=== PATIENT | male | born 1970 | race Caucasian/White ===

== ENCOUNTER 2023-01-03 16:59 | Emergency (ER) | payer MEDICAID ==
[2023-01-03 17:45] LABS: BASOPHILS % (AUTO) 0.5 %; EOSINOPHILS # (AUTO) 0.2 10^3/uL (0.0-0.7); EOSINOPHILS % (AUTO) 2.8 %; HCT - HEMATOCRIT 43.9 % (42.0-52.0); HGB - HEMOGLOBIN 15.3 g/dL (14.0-18.0); LYMPHOCYTES # (AUTO) 1.5 10^3/uL (1.5-3.5); LYMPHOCYTES % (AUTO) 23.4 %; MEAN CORPUSCULAR HGB CONC 34.9 g/dL (32.0-36.0); MEAN CORPUSCULAR VOLUME 94.8 fL (80.0-94.0); MEAN PLATELET VOLUME 10.2 fL (7.4-11.4); MONOCYTES # (AUTO) 0.5 10^3/uL (0.0-1.0); MONOCYTES % (AUTO) 7.1 %; NEUTROPHILS # (AUTO) 4.2 10^3/uL (1.5-6.6); NEUTROPHILS % (AUTO) 65.9 %; PLT - PLATELET COUNT 186 10^3/uL (130-450); RED BLOOD COUNT 4.63 10^6/uL (4.70-6.10); RED CELL DISTRIBUTION WIDTH 12.7 % (12.0-15.0); WHITE BLOOD COUNT 6.3 x10^3/uL (4.8-10.8)
[2023-01-03 18:01] LABS: ALBUMIN 4.8 g/dL (3.2-5.5); BILIRUBIN,TOTAL 0.4 mg/dL (0.2-1.0); CALCIUM 9.4 mg/dL (8.5-10.3); CREATININE 0.8 mg/dL (0.6-1.3); TOTAL PROTEIN 7.2 g/dL (6.4-8.9)
[2023-01-03 18:04] LABS: TROPONIN I HIGH SENSITIVITY 2.3 ng/L (2.3-19.7)
--- NOTE | 2023-01-03 18:34 | XRAY Report ---
PROCEDURE: Chest 1 View X-Ray INDICATIONS: Chest pain TECHNIQUE: One view of the chest was acquired. COMPARISON: None. FINDINGS: Surgical changes and devices: None. Lungs and pleura: No pleural effusions or pneumothorax. Lungs are clear. Mediastinum: Mediastinal contours appear normal. Heart size is normal. Bones and chest wall: No suspicious bony lesions. Overlying soft tissues appear unremarkable. IMPRESSION: No significant portable chest abnormality is seen. Reviewed by: Almas Barboza MD on 01/03/2023 5:33 PM [facility] Approved by: Almas Barboza MD on 01/03/2023 5:33 PM [facility] Station ID: [id number]
--- NOTE | 2023-01-03 20:34 | ED Physician Documentation ---
History of Present Illness - Stated complaint Stated Complaint: CHEST PX - Chief complaint Chief Complaint: Cardiac - Additonal information Additional information: 52-year-old male presents emergency department for evaluation of intermittent chest pain that began about 3 weeks ago. Chest pain is described as substernal. Sometimes he feels like a rib is out of place. Sometimes burping makes the symptoms better. Its not exertional. No radiation to the back. Patient is by Wells criteria negative for PE. No history of hypertension, diabetes tobacco or alcohol use. Patient takes no prescribed medications. Review of Systems Constitutional: denies: Fever, Chills Cardiac: reports: Chest pain / pressure. denies: Palpitations Respiratory: reports: Reviewed and negative GI: reports: Reviewed and negative : reports: Reviewed and negative PD PAST MEDICAL HISTORY - Past Medical History Past Medical History: No - Past Surgical History Past Surgical History: Yes Ortho: Rotator cuff repair - Allergies Allergies/Adverse Reactions: Allergies Allergy/AdvReac Type Severity Reaction Status Date / Time Penicillins Allergy Edema Verified 01/03/23 17:21 - Social History Does the pt smoke?: No Smoking Status: Never smoker Does the pt drink ETOH?: No Does the pt have substance abuse?: No - Immunizations Immunizations are current?: Yes - POLST Patient has POLST: No PD ED PE NORMAL - HEENT HEENT: PERRL - Cardiac Cardiac: RRR, No murmur - Respiratory Respiratory: No respiratory distress - Abdomen Abdomen: Normal bowel sounds - Rectal Rectal: Deferred - Back Back: No CVA TTP - Derm Derm: Normal color, Warm and dry - Extremities Extremities: No deformity - Neuro Neuro: Alert and oriented X 3 Eye Opening: Spontaneous Motor: Obeys Commands Verbal: Oriented GCS Score: 15 Results - Vitals Vitals: Vital Signs - 24 hr 01/03/23 17:15 Temperature 36.1 C L Heart Rate 59 L Respiratory 16 Rate Blood Pressure 147/81 H O2 Saturation 100 Oxygen O2 Source Room air - EKG (time done) 1718 EKG releavant findings:: EKG personally interpreted by author of this note. Relevant findings are: Rate: Rate (enter#) (55) Rhythm: NSR [place]: Normal Intervals: Normal RI QRS: Normal Ischemia: Normal ST segments Compare to prior EKG: Old EKG unavailable Computer interpretation: Agree with computer - Labs Labs: Laboratory Tests 01/03/23 01/03/23 01/03/23 17:40 17:40 19:03 WBC 6.3 RBC 4.63 L Hgb 15.3 Hct 43.9 MCV 94.8 H MCH 33.0 H MCHC 34.9 RDW 12.7 Plt Count 186 MPV 10.2 Neut # (Auto) 4.2 Lymph # (Auto) 1.5 [place] # (Auto) 0.5 Eos # (Auto) 0.2 Baso # (Auto) 0.0 Absolute Nucleated RBC 0.00 Nucleated RBC % 0.0 Sodium 138 Potassium 4.0 Chloride 104 Carbon Dioxide 31 Anion Gap 3.0 L BUN 17 Creatinine 0.8 Estimated GFR (MDRD) 102 Glucose 103 Calcium 9.4 Total Bilirubin 0.4 AST 19 ALT 17 Alkaline Phosphatase 75 Troponin I High Sens 2.3 2.3 Total Protein 7.2 Albumin 4.8 Globulin 2.4 Albumin/Globulin Ratio 2.0 Lipase 31 - Rads (name of study) cxr Relevant Findings:: Final report received (No acute cardiopulmonary process) PD Medical Decision Making - ED course Complexity details: reviewed results, re-evaluated patient, considered differential, d/w patient ED course: 52-year-old male here for intermittent substernal chest pressure and pain for the last 3 weeks. Nonexertional. Negative for PE by Wells criteria. Chest x- ray without findings of pneumonia pneumothorax cardiomegaly or pleural effusion. A twelve-lead EKG is interpreted by myself is entirely nonischemic. CBC electrolytes and high-sensitivity troponin x2 were also all entirely negative essentially ruling out ACS. low suspicion of a0 dissection The pain was reproducible on exam raising the possibility for chest wall strain. Patient describes himself is very physically active. There is also the pos sibility of gastritis as he often finds burping improves the symptoms. I am this time patient is stable for discharge. Advise follow closely with PCP. By heart criteria he is considered low risk for Mace but given his age and male gender would recommend follow-up with PCP for outpatient stress testing. The usual emergent return precautions worsening symptoms discussed. Departure - Departure Disposition: 01 Home, Self Care Clinical Impression: Chest pain Qualifiers: Chest pain type: intercostal pain Qualified Code(s): R07.82 - Intercostal pain Condition: Stable Record reviewed to determine appropriate education?: Yes Comments: Conrad you have had 3 weeks of intermittent left-sided chest pain. Today in the emergency department when we pressed on your chest we able to reproduce the pain. This raises the possibility that this could actually be chest wall or muscle inflammation. For this I would recommend they take some ibuprofen or Tylenol to see if it improves his symptoms. You have also described that the symptoms sometimes improve after belching with a using the possibility that gastritis or stomach inflammation could be at play. You can continue to try Joselito s or [id number] antacid medications. Your chest x-ray today in the emergency department was entirely normal. Your EKG was normal as well as all of your labs. You are considered lower risk for heart disease given your exam and history however given your age and gender I would recommend you follow closely with your primary care doctor to discuss this ED visit. You may benefit from outpatient referral for stress testing. Return immediately to the ER if you have any new or worsening symptoms.
[2023-01-03 20:45] VITALS: BP 139/97; O2SAT 98
== END 2023-01-03 20:43 | disposition home or self-care (01) ==
LOC: ED 16:59
DX: R07.82 Intercostal pain (principal)
CPT/HCPCS: 36415; 80053; 83690; 84484; 85025; 93005; 99283; 99284